=== PATIENT | female | born 1985 | race Caucasian/White ===

== ENCOUNTER 2016-08-13 02:32 | Emergency (ER) | payer OTHER ==
--- NOTE | 2016-08-13 06:14 | ED CLINICAL REPORT ---
Clinical Report - Physicians/Mid Levels [facility] [address] [place] [address] 08/13/2016 2:33 Patient: NATTY LARSON Arrived- By private vehicle. Historian- patient. HISTORY OF PRESENT ILLNESS Chief Complaint: PELVIC PAIN. This started today and still present and worsening. It was abrupt in onset and has been constant but is not gone now. The symptoms are described as severe. Modifying factors. Not worsened by anything. Not relieved by anything. The patient has had pelvic pain. No missed period(s), irregular periods or abnormal bleeding. Sexually active. (took misoprostol prior to onset of pain under the direction of her doctor. reports this is her first .). Currently : just under 10 weeks by dates. Recent sonogram showed demise. Similar symptoms previously: None. Recent medical care: Not recently seen/assessed. REVIEW OF SYSTEMS No fever, difficulty breathing or chest pain. All systems otherwise negative, except as recorded above. PAST HISTORY See nurses notes. Additional Surgeries: no known surgeries. Medications: Singulair Oral. Flovent HFA Inhalation. ProAir HFA Inhalation. Adderall Oral. Misoprostol Oral. Allergies: No Known Drug Allergy. SOCIAL HISTORY Never smoker. No alcohol use or drug use. No recent travel. Is a local resident. FAMILY HISTORY (no family history of delivery problems that she is aware of). ADDITIONAL NOTES The nursing notes have been reviewed. PHYSICAL EXAM Vital Signs: 08/13/2016 02:42 BP: 100/57. HR: 53. RR: 22. O2 saturation: 100%. Temp: 97.6 F. Pain level now: 10/10. Blood pressure normal. Oxygen saturation normal. Appearance: Alert. Oriented X3. Patient in moderate distress. CVS: Heart sounds normal. Respiratory: No respiratory distress. Breath sounds normal. Chest nontender. Abdomen: Soft and nontender. Bowel sounds normal. Back: Normal external inspection. : Speculum and bimanual exam performed. External inspection normal. Vaginal bleeding, consisting of dark blood, via the cervical os (scant). Cervical os closed. No cervical dilation. Enlarged uterus- 8 wk size. Uterine tenderness. No tenderness with movement of the cervix. No adnexal tenderness. No adnexal mass/fullness. No pelvic mass. (Exam performed with DIANE Dove at all times). Skin: Skin warm and dry. Normal skin color. No rash. Normal skin turgor. Extremities: Extremities nontender. No lower extremity edema. LABS, X-RAYS, AND EKG Pelvic Sonogram: PROCEDURE: US OB 1ST TRIMESTER W/TRANSVAG INDICATION: ABNORMAL BLEEDING, initial encounter TECHNIQUE: Pemberton scale, color, and spectral Doppler transabdominal and endovaginal sonographic images of the first trimester gravid uterus were obtained. COMPARISON: None. FINDINGS: TRANSABDOMINAL SCANS: Single intrauterine gestational sac. TRANSVAGINAL SCANS: pole measures 2.1 cm, 8 weeks 5 days. No evidence of cardiac activity. Small amount of fluid in the endocervical canal and free fluid the pelvis. Ovaries not well visualized. IMPRESSION: 1. Intrauterine (8 weeks 5 days) consistent with demise. The study was independently viewed by me, interpreted by the radiologist and discussed with the radiologist. Laboratory Tests: CBC w Diff: (RYAN: 08/13/2016 02:45) ( MsgRcvd 08/13/2016 02:58) Final results Test Result Flag Units (Reference) WHITE BLOOD COUNT 6.5 K/uL (4.5-11.5) RED BLOOD COUNT 4.28 M/uL (4.00-5.20) HEMOGLOBIN 12.5 gm/dL (12.0-16.0) HEMATOCRIT 37.3 % (36.0-46.0) MEAN CELL VOLUME 87 fL (80-100) MEAN CORPUSCULAR HGB 29 pg (26-34) MEAN CORPUSCULAR HGB CONC 33 g/dL (31-37) RED CELL DISTRIBUTION WIDTH 12.1 % (11.6-14.8) PLATELET COUNT 295 K/uL (150-400) NEUTROPHIL % 41.2 L % (50-75) LYMPH % 46.8 H % (25-40) MONO % 8.2 % (3-14) EOSINOPHIL % 3.1 % (0-4) BASOPHIL % 0.7 % (0-2) PT with INR: (RYAN: 08/13/2016 02:45) ( MsgRcvd 08/13/2016 03:07) Final results Test Result Flag Units (Reference) INR 1.0 (0.8-1.2) Low Intensity Therapy: INR 1.5-2.0 PT range 18.5-23.1Mod.Intensity Therapy: INR 2.0-3.0 PT range 23.1-31.5High Intensity Therapy: INR 2.5-3.5 PT range 27.4-35.5High Intensity Therapy 2: INR 3.0-4.0 PT range 31.5-39.3 APTT 29 SECONDS (24-34) CMP: (RYAN: 08/13/2016 02:45) ( MsgRcvd 08/13/2016 03:10) Final results Test Result Flag Units (Reference) GLUCOSE 134 H mg/dL (70-110) BUN 11 mg/dL (7-18) CREATININE 0.6 mg/dL (0.6-1.3) Estimated GFR >60 mL/min Estimated GFR- >60 mL/min Note: Persistent reduction over 3 months in eGFR<60 mL/min/1.73 m2 defines CKD. Patients with eGFR values>=60 mL/min/1.73 m2 may also have CKD if evidence ofpersistent proteinuria. Additional information may be foundat [email or web address]. SODIUM 135 L mmol/L (136-145) POTASSIUM 3.4 L mmol/L (3.5-5.1) CHLORIDE 102 mmol/L (98-107) CARBON DIOXIDE 23 mmol/L (21-32) CALCIUM 8.6 mg/dL (8.5-10.1) TOTAL PROTEIN 6.3 L g/dL (6.4-8.2) ALBUMIN 3.3 g/dL (3.3-5.0) BILIRUBIN, TOTAL 0.3 mg/dL (0.0-1.0) ALKALINE PHOSPHATASE 52 U/L (46-116) AST (SGOT) 21 U/L (15-37) ALT (SGPT) 31 U/L (12-78) Type & Screen: (RYAN: 08/13/2016 02:45) ( MsgRcvd 08/13/2016 03:28) Final results Test Result Flag Units (Reference) PATIENT BLOOD TYPE O Positive ANTIBODY SCREEN NEGATIVE . PROGRESS AND PROCEDURES Course of Care: he patient is a pleasant 31-year-old female presenting for evaluation of pelvic pain and was recently diagnosed withinevitable by her PYROMETER TEMPERATURE REGULATOR. Patient is recently taking misoptostol. Pain likely due to the miso. patient's blood pressure noted to be hypotensive here in the emergency department. Patient will be monitored closely. Fluids had been ordered. At this time differential diagnosis includes massive hemorrhage from Or vasovagal type reaction with inevitable . Pelvic exam performed with nursing clerk funeral detail staff at all times. Only a small amount of bleeding noted at the cervical os. No active massive bleeding. Ultrasound confirms demise. Cervical os is closed and no dilation. Blood pressure has improved here in the emergency department with IV fluids. We'll continue to monitor. Further workup does notshow any other acute abnormalities. Hemoglobin and hematocrit are within normal limits. Had a long discussion with patient in regards to her current and expectant course. Patient reports having prescription for pain medication in [place]. Because the patient is approximately one hour via car from [place], we'll provide patient with prescription to slat pickler locally. Patient's blood pressure improved with IV hydration. Had discussion with patient in regards to her workup, diagnosis, home care, follow-up, and return precautions. All questions answered. The patient expressed understanding of these instructions and was agreeable to them. Do not feel the patient needs a emergency dilation and curettage. Do not feel patient needs to be admitted to the hospital at this time. No signs of infection at this time. We'll manage conservatively and have patient follow up with her PYROMETER TEMPERATURE REGULATOR. Patient is nontoxic. Vital signs have stabilized. Critical care performed (40 minutes). Time is exclusive of separately billable procedures. Time includes: direct patient care, patient reassessment, coordination of patient care, interpretation of data (laboratory data), review of patient's medical records, medical consultation and documentation of patient care. Disposition: Discharged. Condition: good. CLINICAL IMPRESSION Acute pelvic pain. Threatened . (acute). acute hypotension, fluid responsive. INSTRUCTIONS Do not work for two days. Warnings: GENERAL WARNINGS: Return or contact your physician immediately if your condition worsens or changes unexpectedly, if not improving as expected, or if other problems arise. Specifically return if pain, vomiting, bleeding, breathing difficulty or fever. light headed, weakness, abnormal vaginal discharge. Your Current Medications: CONTINUE TAKING THE FOLLOWING MEDICATIONS: Adderall Oral. Flovent HFA Inhalation. Misoprostol Oral. ProAir HFA Inhalation. Singulair Oral. Prescription Medications: Percocet 5 mg/325 mg: take 1-2 tablets orally every 6 hours as needed for pain. Dispense twenty (20). No refill. Substitution is permissible. Follow-up: Return to the emergency department as needed. Follow up with your doctor in three days. Reason for referral: recheck today's concerns. Summary of care provided to patient via paper. Screening today revealed the patient's blood pressure to be in the normal range. The patient should follow up with a primary care provider for blood pressure management. Understanding of the discharge instructions verbalized by patient. (Electronically signed by Nolberto Butler Dr. 08/16/2016 18:09)
--- NOTE | 2016-08-13 06:14 | ED NURSING NOTES ---
Clinical Report - Nurses [facility] [address] [place] [place] [address] 08/13/2016 2:33 Patient: NATTY LARSON TRIAGE Triage time 0240. Acuity: LEVEL 3. Chief Complaint: ABDOMINAL PAIN and CRAMPS. RALF COMA SCORE: Ralf Coma Scale: 15- eyes open spontaneously (4); best verbal response- oriented x 4 (5); best motor response- obeys commands (6). --02:49 Petty Hameed R.N. 02:42 08/13/16. BP: 100/57. HR: 53. RR: 22 (labored). O2 saturation: 100% on room air. Temp: 97.6 F (oral). Pain level now: 04/27. --02:49 Petty Hameed R.N. Weight: 65.7 kg stated. Height/Length: 65 inches Per Patient. BMI: 24.1. --02:39 Petty Hameed R.N. Medications Misoprostol Oral. --02:47 Petty Hameed R.N. Adderall Oral. --02:47 Petty Hameed R.N. ProAir HFA Inhalation. --02:47 Petty Hameed R.N. Flovent HFA Inhalation. --02:47 Petty Hameed R.N. Singulair Oral. --02:47 Petty Hameed R.N. Allergies No Known Drug Allergy. --02:48 Petty Hameed R.N. Medication/allergy information source: the patient. --02:49 Petty Hameed R.N. History Arrived by private vehicle. Historian: patient. Accompanied by friend. Primary physician (Cha). ( pt c/o severe pelvic pain x 1 hour. pt about 9 1/2 weeks , ultrasound yesterday showed pt's fetus had no heart beat. pt given Misoprostol to take last night at 2230.). This started last night. 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 PAST MEDICAL HX: Last normal menstrual period- Jun 04, 2016. SOCIAL HX: Never smoker. Occasional alcohol use. No drug use. ABUSE ASSESSMENT: No report of abuse. FALL RISK ASSESSMENT: Fall risk assessment completed. No fall risk identified. NUTRITIONAL RISK ASSESSMENT: The nutritional risk assessment revealed no deficiencies. FUNCTIONAL ASSESSMENT: Functional assessment: no impairments noted. LEARNING NEEDS ASSESSMENT: The learning needs assessment revealed no barriers. SKIN INTEGRITY ASSESSMENT: Skin integrity risk assessment completed. No skin integrity risk identified. --02:49 Petty Hameed R.N. PAST MEDICAL HX: Currently . --02:49 Petty Hameed R.N. PROBLEMS: Asthma. --02:48 Petty Hameed R.N. ADDITIONAL SURGERIES: no known surgeries. Interventions ID band on patient. To treatment room. --02:49 Petty Hameed R.N. PHYSICAL ASSESSMENT 03:05 pt holding on to lower abdomen c/o severe pain, cramping. To room via wheelchair. GENERAL / NEURO / PSYCH: Alert. Oriented X 4. Appears in pain. RESPIRATORY: Respirations not labored. SKIN: Skin is dry. Skin is cool. --07:01 Petty Hameed R.N. NURSING PROGRESS NOTES Pulse oximeter and NIBP monitor placed on patient. Patient gowned. Two patient identifiers checked. Call light placed in reach. Side rails up x 1. Bed placed in lowest position. Brakes of bed on. Patient ready for evaluation. --02:49 Petty Hameed R.N. 02:55 08/13/2016 Site #1 started via IV in the right antecubital space with an 18g angiocath; one attempt. Blood drawn: rainbow set. Labeled in the presence of the patient and sent to the lab. Saline lock flushed. --02:55 Adonay Armendariz R.N. 02:55 08/13/2016 Started bag #1 1000 mL IV Fluids IV NS (Saline); bolus of 1000 mL wide open via site #1. Allergies verified and confirmed 5 rights. IV patency established. IV site checked: no pain, redness, or swelling. IV flushed thoroughly pre- and post-medication administration. --02:55 Adonay Armendariz R.N. 02:55 08/13/2016 Fentanyl IVP 50 mcg given over 2 minute(s) via site #1. Allergies verified, confirmed 5 rights and sedative warning given to the patient. IV patency established. IV site checked: no pain, redness, or swelling. IV flushed thoroughly pre- and post-medication administration. IVP given by RN. --02:58 Petty Hameed R.N. 03:12. PELVIC EXAM: Pelvic exam performed by ED physician. Assisted by one nurse. Preparation: pelvic tray; patient placed in lithotomy position. Procedure: speculum and bimanual exam. ( scant amount of dark blood per MD.). --03:17 Petty Hameed R.N. 03:25 08/13/2016 Fentanyl IVP 50 mcg given over 2 minute(s) via site #1. Allergies verified, confirmed 5 rights and sedative warning given to the patient. IV patency established. IV site checked: no pain, redness, or swelling. IV flushed thoroughly pre- and post-medication administration. IVP given by RN. --03:25 Petty Hameed R.N. 03:00 08/13/16. BP: 105/58. HR: 62. RR: 20 (unlabored). O2 saturation: 99% on room air. Pain level now: 01/25. --03:27 Petty Hameed R.N. 03:15 08/13/16. BP: 108/69. HR: 69. RR: 18 (unlabored). O2 saturation: 100% on room air. Pain level now: 01/25. --03:28 Petty Hameed R.N. 03:32 08/13/2016 IV Fluids IV NS Discontinued: bag #1 completed. Total amount infused: 1000 ml mL. IV patency established IV site checked: no pain, redness, or swelling IV flushed thoroughly. --03:32 Petty Hameed R.N. 03:33 08/13/2016 Started bag #2 1000 mL IV Fluids IV NS (Saline); at 999 mL/hr over 1 hour(s) via site #1 via IV pump. Allergies verified and confirmed 5 rights. IV patency established. IV site checked: no pain, redness, or swelling. IV flushed thoroughly pre- and post-medication administration. --03:33 Petty Hameed R.N. 03:58 08/13/2016 Dilaudid (HYDROmorphone HCl PF) IVP 1 mg given over 1 minute(s) via site #1. Allergies verified, confirmed 5 rights and sedative warning given to the patient and patient's blow mold operator. IV patency established. IV site checked: no pain, redness, or swelling. IV flushed thoroughly pre- and post-medication administration. IVP given by RN. --04:05 Petty Hameed R.N. chaperoned with [email or web address] for about 5 min. pt tolerated well. --04:07 Petty Hameed R.N. 04:40 08/13/2016 IV Fluids IV NS Discontinued: bag #2 completed. Total amount infused: 1000 ml mL. IV patency established. IV site checked: no pain, redness, or swelling. IV flushed thoroughly. --04:46 Petty Hameed R.N. 04:40 pt's 2nd liter of fluids completed. pt states she can't give a urine sample right now but will try. --04:47 Petty Hameed R.N. 04:00 08/13/16. BP: 108/69. HR: 69. RR: 18 (unlabored). O2 saturation: 99% on room air. --05:07 Petty Hameed R.N. Patient ID band checked for patient name and birthdate. Clean catch urine collected with return of yellow-colored clear urine; sample sent to lab for urinalysis. Specimen labeled in the presence of the patient (0500). --05:08 Petty Hameed R.N. 05:00 08/13/2016 Started bag #3 1000 mL IV Fluids IV NS (Saline); at 999 mL/hr over 1 hour(s) via site #1 via IV pump. Allergies verified and confirmed 5 rights. IV patency established. IV site checked: no pain, redness, or swelling. IV flushed thoroughly pre- and post-medication administration. --05:09 Petty Hameed R.N. 05:00 08/13/16. BP: 102/70. HR: 84. RR: 18 (unlabored). O2 saturation: 98% on room air. Temp: 98 F (oral). --05:58 Petty Hameed R.N. 05:40 pt feeling better, pain 10/26. --05:58 Petty Hameed R.N. 06:07 08/13/2016 IV Fluids IV NS Discontinued: bag #3 completed upon discharge. Total amount infused: 1000 mL. IV patency established. IV site checked: no pain, redness, or swelling. IV flushed thoroughly. --06:07 Adonay Armendariz R.N. 06:59 08/13/2016 Dilaudid (HYDROmorphone HCl PF) IVP 0.5 mg given over 1 minute(s) via site #1. Allergies verified, confirmed 5 rights and sedative warning given to the patient. IV patency established. IV site checked: no pain, redness, or swelling. IV flushed thoroughly pre- and post-medication administration. IVP given by RN. --06:59 Petty Hameed R.N. DISPOSITION / DISCHARGE Departure time: 720. Condition at departure: improved. Learning barriers present. Discharge instructions provided and reviewed with the patient. Reviewed medication(s) information. Prescription(s) given to the patient. Reviewed referral to family practice. Patient and blow mold operator verbalized understanding. Written instructions provided. The patient was discharged home and accompanied by blow mold operator. She left the Emergency Department ambulatory and via private vehicle. Automotive Design Drafter driving. --07:23 Marleen Blackwood R.N. 07:21 08/13/16. BP: 103/55. HR: 96. RR: 18. O2 saturation: 100%. Pain level now: 07/28. --07:23 Marleen Blackwood R.N. Locked/Released at 08/13/2016 13:43 by Marleen Blackwood R.N.
--- NOTE | 2016-08-13 06:14 | ED CLINICAL REPORT ---
Clinical Report - Physicians/Mid Levels [facility] [address] [place] [address] 08/13/2016 2:33 Patient: NATTY LARSON Arrived- By private vehicle. Historian- patient. HISTORY OF PRESENT ILLNESS Chief Complaint: PELVIC PAIN. This started today and still present and worsening. It was abrupt in onset and has been constant but is not gone now. The symptoms are described as severe. Modifying factors. Not worsened by anything. Not relieved by anything. The patient has had pelvic pain. No missed period(s), irregular periods or abnormal bleeding. Sexually active. (took misoprostol prior to onset of pain under the direction of her doctor. reports this is her first .). Currently : just under 10 weeks by dates. Recent sonogram showed demise. Similar symptoms previously: None. Recent medical care: Not recently seen/assessed. REVIEW OF SYSTEMS No fever, difficulty breathing or chest pain. All systems otherwise negative, except as recorded above. PAST HISTORY See nurses notes. Additional Surgeries: no known surgeries. Medications: Singulair Oral. Flovent HFA Inhalation. ProAir HFA Inhalation. Adderall Oral. Misoprostol Oral. Allergies: No Known Drug Allergy. SOCIAL HISTORY Never smoker. No alcohol use or drug use. No recent travel. Is a local resident. FAMILY HISTORY (no family history of delivery problems that she is aware of). ADDITIONAL NOTES The nursing notes have been reviewed. PHYSICAL EXAM Vital Signs: 08/13/2016 02:42 BP: 100/57. HR: 53. RR: 22. O2 saturation: 100%. Temp: 97.6 F. Pain level now: 10/10. Blood pressure normal. Oxygen saturation normal. Appearance: Alert. Oriented X3. Patient in moderate distress. CVS: Heart sounds normal. Respiratory: No respiratory distress. Breath sounds normal. Chest nontender. Abdomen: Soft and nontender. Bowel sounds normal. Back: Normal external inspection. : Speculum and bimanual exam performed. External inspection normal. Vaginal bleeding, consisting of dark blood, via the cervical os (scant). Cervical os closed. No cervical dilation. Enlarged uterus- 8 wk size. Uterine tenderness. No tenderness with movement of the cervix. No adnexal tenderness. No adnexal mass/fullness. No pelvic mass. (Exam performed with DIANE Dove at all times). Skin: Skin warm and dry. Normal skin color. No rash. Normal skin turgor. Extremities: Extremities nontender. No lower extremity edema. LABS, X-RAYS, AND EKG Pelvic Sonogram: PROCEDURE: US OB 1ST TRIMESTER W/TRANSVAG INDICATION: ABNORMAL BLEEDING, initial encounter TECHNIQUE: Pemberton scale, color, and spectral Doppler transabdominal and endovaginal sonographic images of the first trimester gravid uterus were obtained. COMPARISON: None. FINDINGS: TRANSABDOMINAL SCANS: Single intrauterine gestational sac. TRANSVAGINAL SCANS: pole measures 2.1 cm, 8 weeks 5 days. No evidence of cardiac activity. Small amount of fluid in the endocervical canal and free fluid the pelvis. Ovaries not well visualized. IMPRESSION: 1. Intrauterine (8 weeks 5 days) consistent with demise. The study was independently viewed by me, interpreted by the radiologist and discussed with the radiologist. Laboratory Tests: CBC w Diff: (RYAN: 08/13/2016 02:45) ( MsgRcvd 08/13/2016 02:58) Final results Test Result Flag Units (Reference) WHITE BLOOD COUNT 6.5 K/uL (4.5-11.5) RED BLOOD COUNT 4.28 M/uL (4.00-5.20) HEMOGLOBIN 12.5 gm/dL (12.0-16.0) HEMATOCRIT 37.3 % (36.0-46.0) MEAN CELL VOLUME 87 fL (80-100) MEAN CORPUSCULAR HGB 29 pg (26-34) MEAN CORPUSCULAR HGB CONC 33 g/dL (31-37) RED CELL DISTRIBUTION WIDTH 12.1 % (11.6-14.8) PLATELET COUNT 295 K/uL (150-400) NEUTROPHIL % 41.2 L % (50-75) LYMPH % 46.8 H % (25-40) MONO % 8.2 % (3-14) EOSINOPHIL % 3.1 % (0-4) BASOPHIL % 0.7 % (0-2) PT with INR: (RYAN: 08/13/2016 02:45) ( MsgRcvd 08/13/2016 03:07) Final results Test Result Flag Units (Reference) INR 1.0 (0.8-1.2) Low Intensity Therapy: INR 1.5-2.0 PT range 18.5-23.1Mod.Intensity Therapy: INR 2.0-3.0 PT range 23.1-31.5High Intensity Therapy: INR 2.5-3.5 PT range 27.4-35.5High Intensity Therapy 2: INR 3.0-4.0 PT range 31.5-39.3 APTT 29 SECONDS (24-34) CMP: (RYAN: 08/13/2016 02:45) ( MsgRcvd 08/13/2016 03:10) Final results Test Result Flag Units (Reference) GLUCOSE 134 H mg/dL (70-110) BUN 11 mg/dL (7-18) CREATININE 0.6 mg/dL (0.6-1.3) Estimated GFR >60 mL/min Estimated GFR- >60 mL/min Note: Persistent reduction over 3 months in eGFR<60 mL/min/1.73 m2 defines CKD. Patients with eGFR values>=60 mL/min/1.73 m2 may also have CKD if evidence ofpersistent proteinuria. Additional information may be foundat [email or web address].org. SODIUM 135 L mmol/L (136-145) POTASSIUM 3.4 L mmol/L (3.5-5.1) CHLORIDE 102 mmol/L (98-107) CARBON DIOXIDE 23 mmol/L (21-32) CALCIUM 8.6 mg/dL (8.5-10.1) TOTAL PROTEIN 6.3 L g/dL (6.4-8.2) ALBUMIN 3.3 g/dL (3.3-5.0) BILIRUBIN, TOTAL 0.3 mg/dL (0.0-1.0) ALKALINE PHOSPHATASE 52 U/L (46-116) AST (SGOT) 21 U/L (15-37) ALT (SGPT) 31 U/L (12-78) Type & Screen: (YRAN: 08/13/2016 02:45) ( MsgRcvd 08/13/2016 03:28) Final results Test Result Flag Units (Reference) PATIENT BLOOD TYPE O Positive ANTIBODY SCREEN NEGATIVE . PROGRESS AND PROCEDURES Course of Care: he patient is a pleasant 31-year-old female presenting for evaluation of pelvic pain and was recently diagnosed withinevitable by her DIRECTOR OF ENTERTAINMENT. Patient is recently taking misoptostol. Pain likely due to the miso. patient's blood pressure noted to be hypotensive here in the emergency department. Patient will be monitored closely. Fluids had been ordered. At this time differential diagnosis includes massive hemorrhage from Or vasovagal type reaction with inevitable . Pelvic exam performed with nursing coil winder hand staff at all times. Only a small amount of bleeding noted at the cervical os. No active massive bleeding. Ultrasound confirms demise. Cervical os is closed and no dilation. Blood pressure has improved here in the emergency department with IV fluids. We'll continue to monitor. Further workup does notshow any other acute abnormalities. Hemoglobin and hematocrit are within normal limits. Had a long discussion with patient in regards to her current and expectant course. Patient reports having prescription for pain medication in [place]. Because the patient is approximately one hour via car from [place], we'll provide patient with prescription to mushroom picker locally. Patient's blood pressure improved with IV hydration. Had discussion with patient in regards to her workup, diagnosis, home care, follow-up, and return precautions. All questions answered. The patient expressed understanding of these instructions and was agreeable to them. Do not feel the patient needs a emergency dilation and curettage. Do not feel patient needs to be admitted to the hospital at this time. No signs of infection at this time. We'll manage conservatively and have patient follow up with her DIRECTOR OF ENTERTAINMENT. Patient is nontoxic. Vital signs have stabilized. Critical care performed (40 minutes). Time is exclusive of separately billable procedures. Time includes: direct patient care, patient reassessment, coordination of patient care, interpretation of data (laboratory data), review of patient's medical records, medical consultation and documentation of patient care. Disposition: Discharged. Condition: good. CLINICAL IMPRESSION Acute pelvic pain. Threatened . (acute). acute hypotension, fluid responsive. INSTRUCTIONS Do not work for two days. Warnings: GENERAL WARNINGS: Return or contact your physician immediately if your condition worsens or changes unexpectedly, if not improving as expected, or if other problems arise. Specifically return if pain, vomiting, bleeding, breathing difficulty or fever. light headed, weakness, abnormal vaginal discharge. Your Current Medications: CONTINUE TAKING THE FOLLOWING MEDICATIONS: Adderall Oral. Flovent HFA Inhalation. Misoprostol Oral. ProAir HFA Inhalation. Singulair Oral. Prescription Medications: Percocet 5 mg/325 mg: take 1-2 tablets orally every 6 hours as needed for pain. Dispense twenty (20). No refill. Substitution is permissible. Follow-up: Return to the emergency department as needed. Follow up with your doctor in three days. Reason for referral: recheck today's concerns. Summary of care provided to patient via paper. Screening today revealed the patient's blood pressure to be in the normal range. The patient should follow up with a primary care provider for blood pressure management. Understanding of the discharge instructions verbalized by patient. (Electronically signed by Nolberto Butler Dr. 08/16/2016 18:09)
--- NOTE | 2016-08-13 06:14 | ED NURSING NOTES ---
Clinical Report - Nurses [facility] [address] [place] [place] [address] 08/13/2016 2:33 Patient: NATTY LARSON TRIAGE Triage time 0240. Acuity: LEVEL 3. Chief Complaint: ABDOMINAL PAIN and CRAMPS. RALF COMA SCORE: Ralf Coma Scale: 15- eyes open spontaneously (4); best verbal response- oriented x 4 (5); best motor response- obeys commands (6). --02:49 Petty Hameed R.N. 02:42 08/13/16. BP: 100/57. HR: 53. RR: 22 (labored). O2 saturation: 100% on room air. Temp: 97.6 F (oral). Pain level now: 04/27. --02:49 Petty Hameed R.N. Weight: 65.7 kg stated. Height/Length: 65 inches Per Patient. BMI: 24.1. --02:39 Petty Hameed R.N. Medications Misoprostol Oral. --02:47 Petty Hameed R.N. Adderall Oral. --02:47 Petty Hameed R.N. ProAir HFA Inhalation. --02:47 Petty Hameed R.N. Flovent HFA Inhalation. --02:47 Petty Hameed R.N. Singulair Oral. --02:47 Petty Hameed R.N. Allergies No Known Drug Allergy. --02:48 Petty Hameed R.N. Medication/allergy information source: the patient. --02:49 Petty Hameed R.N. History Arrived by private vehicle. Historian: patient. Accompanied by friend. Primary physician (Cha). ( pt c/o severe pelvic pain x 1 hour. pt about 9 1/2 weeks , ultrasound yesterday showed pt's fetus had no heart beat. pt given Misoprostol to take last night at 2230.). This started last night. 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 PAST MEDICAL HX: Last normal menstrual period- Jun 04, 2016. SOCIAL HX: Never smoker. Occasional alcohol use. No drug use. ABUSE ASSESSMENT: No report of abuse. FALL RISK ASSESSMENT: Fall risk assessment completed. No fall risk identified. NUTRITIONAL RISK ASSESSMENT: The nutritional risk assessment revealed no deficiencies. FUNCTIONAL ASSESSMENT: Functional assessment: no impairments noted. LEARNING NEEDS ASSESSMENT: The learning needs assessment revealed no barriers. SKIN INTEGRITY ASSESSMENT: Skin integrity risk assessment completed. No skin integrity risk identified. --02:49 Petty Hameed R.N. PAST MEDICAL HX: Currently . --02:49 Petty Hameed R.N. PROBLEMS: Asthma. --02:48 Petty Hameed R.N. ADDITIONAL SURGERIES: no known surgeries. Interventions ID band on patient. To treatment room. --02:49 Petty Hameed R.N. PHYSICAL ASSESSMENT 03:05 pt holding on to lower abdomen c/o severe pain, cramping. To room via wheelchair. GENERAL / NEURO / PSYCH: Alert. Oriented X 4. Appears in pain. RESPIRATORY: Respirations not labored. SKIN: Skin is dry. Skin is cool. --07:01 Petty Hameed R.N. NURSING PROGRESS NOTES Pulse oximeter and NIBP monitor placed on patient. Patient gowned. Two patient identifiers checked. Call light placed in reach. Side rails up x 1. Bed placed in lowest position. Brakes of bed on. Patient ready for evaluation. --02:49 Petty Hameed R.N. 02:55 08/13/2016 Site #1 started via IV in the right antecubital space with an 18g angiocath; one attempt. Blood drawn: rainbow set. Labeled in the presence of the patient and sent to the lab. Saline lock flushed. --02:55 Adonay Armendariz R.N. 02:55 08/13/2016 Started bag #1 1000 mL IV Fluids IV NS (Saline); bolus of 1000 mL wide open via site #1. Allergies verified and confirmed 5 rights. IV patency established. IV site checked: no pain, redness, or swelling. IV flushed thoroughly pre- and post-medication administration. --02:55 Adonay Armendariz R.N. 02:55 08/13/2016 Fentanyl IVP 50 mcg given over 2 minute(s) via site #1. Allergies verified, confirmed 5 rights and sedative warning given to the patient. IV patency established. IV site checked: no pain, redness, or swelling. IV flushed thoroughly pre- and post-medication administration. IVP given by RN. --02:58 Petty Hameed R.N. 03:12. PELVIC EXAM: Pelvic exam performed by ED physician. Assisted by one nurse. Preparation: pelvic tray; patient placed in lithotomy position. Procedure: speculum and bimanual exam. ( scant amount of dark blood per MD.). --03:17 Petty Hameed R.N. 03:25 08/13/2016 Fentanyl IVP 50 mcg given over 2 minute(s) via site #1. Allergies verified, confirmed 5 rights and sedative warning given to the patient. IV patency established. IV site checked: no pain, redness, or swelling. IV flushed thoroughly pre- and post-medication administration. IVP given by RN. --03:25 Petty Hameed R.N. 03:00 08/13/16. BP: 105/58. HR: 62. RR: 20 (unlabored). O2 saturation: 99% on room air. Pain level now: 01/25. --03:27 Petty Hameed R.N. 03:15 08/13/16. BP: 108/69. HR: 69. RR: 18 (unlabored). O2 saturation: 100% on room air. Pain level now: 01/25. --03:28 Petty Hameed R.N. 03:32 08/13/2016 IV Fluids IV NS Discontinued: bag #1 completed. Total amount infused: 1000 ml mL. IV patency established IV site checked: no pain, redness, or swelling IV flushed thoroughly. --03:32 Petty Hameed R.N. 03:33 08/13/2016 Started bag #2 1000 mL IV Fluids IV NS (Saline); at 999 mL/hr over 1 hour(s) via site #1 via IV pump. Allergies verified and confirmed 5 rights. IV patency established. IV site checked: no pain, redness, or swelling. IV flushed thoroughly pre- and post-medication administration. --03:33 Petty Hameed R.N. 03:58 08/13/2016 Dilaudid (HYDROmorphone HCl PF) IVP 1 mg given over 1 minute(s) via site #1. Allergies verified, confirmed 5 rights and sedative warning given to the patient and patient's vest front presser. IV patency established. IV site checked: no pain, redness, or swelling. IV flushed thoroughly pre- and post-medication administration. IVP given by RN. --04:05 Petty Hameed R.N. chaperoned with [email or web address] for about 5 min. pt tolerated well. --04:07 Petty Hameed R.N. 04:40 08/13/2016 IV Fluids IV NS Discontinued: bag #2 completed. Total amount infused: 1000 ml mL. IV patency established. IV site checked: no pain, redness, or swelling. IV flushed thoroughly. --04:46 Petty Hameed R.N. 04:40 pt's 2nd liter of fluids completed. pt states she can't give a urine sample right now but will try. --04:47 Petty Hameed R.N. 04:00 08/13/16. BP: 108/69. HR: 69. RR: 18 (unlabored). O2 saturation: 99% on room air. --05:07 Petty Hameed R.N. Patient ID band checked for patient name and birthdate. Clean catch urine collected with return of yellow-colored clear urine; sample sent to lab for urinalysis. Specimen labeled in the presence of the patient (0500). --05:08 Petty Hameed R.N. 05:00 08/13/2016 Started bag #3 1000 mL IV Fluids IV NS (Saline); at 999 mL/hr over 1 hour(s) via site #1 via IV pump. Allergies verified and confirmed 5 rights. IV patency established. IV site checked: no pain, redness, or swelling. IV flushed thoroughly pre- and post-medication administration. --05:09 Petty Hameed R.N. 05:00 08/13/16. BP: 102/70. HR: 84. RR: 18 (unlabored). O2 saturation: 98% on room air. Temp: 98 F (oral). --05:58 Petty Hameed R.N. 05:40 pt feeling better, pain 10/26. --05:58 Petty Hameed R.N. 06:07 08/13/2016 IV Fluids IV NS Discontinued: bag #3 completed upon discharge. Total amount infused: 1000 mL. IV patency established. IV site checked: no pain, redness, or swelling. IV flushed thoroughly. --06:07 Adonay Armendariz R.N. 06:59 08/13/2016 Dilaudid (HYDROmorphone HCl PF) IVP 0.5 mg given over 1 minute(s) via site #1. Allergies verified, confirmed 5 rights and sedative warning given to the patient. IV patency established. IV site checked: no pain, redness, or swelling. IV flushed thoroughly pre- and post-medication administration. IVP given by RN. --06:59 Petty Hameed R.N. DISPOSITION / DISCHARGE Departure time: 720. Condition at departure: improved. Learning barriers present. Discharge instructions provided and reviewed with the patient. Reviewed medication(s) information. Prescription(s) given to the patient. Reviewed referral to family practice. Patient and vest front presser verbalized understanding. Written instructions provided. The patient was discharged home and accompanied by vest front presser. She left the Emergency Department ambulatory and via private vehicle. Crime Scene Evidence Technician driving. --07:23 Marleen Blackwood R.N. 07:21 08/13/16. BP: 103/55. HR: 96. RR: 18. O2 saturation: 100%. Pain level now: 07/28. --07:23 Marleen Blackwood R.N. Locked/Released at 08/13/2016 13:43 by Marleen Blackwood R.N.
--- NOTE | 2016-08-13 06:15 | ED ORDER SUMMARY ---
..... Patient: NATTY LARSON OrderSheet [facility] VisitID: [id number] [place] [address] 31y, F Registration Date/Time: 08/13/2016 ORDER SHEET Weight: 65.7 kg (stated) Allergies: No Known Drug Allergy GENERAL ORDERS: US OB 1st Trimester w Transvag (several months ago) Urgent (02:49 08/13/2016 Jona Patterson) (Ack 2:51 CHagerty ER Vocational Trainer) (4:28 Massimo) CBC w Diff Urgent (02:50 08/13/2016 Jona Patterson) (Ack 2:51 Ely ER Vocational Trainer) (7:02 LSullivan R.N.) CMP Urgent (02:50 08/13/2016 Jona Patterson) (Ack 2:51 CHagerty ER Vocational Trainer) (7:03 LSullivan R.N.) UA-Culture if indicated Urgent (02:50 08/13/2016 Jona Patterson) (Ack 2:51 CHagerty ER Vocational Trainer) (7:03 LSullivan R.N.) PT with INR Urgent (02:50 08/13/2016 Jona Patterson) (Ack 2:51 CHagerty ER Vocational Trainer) (7:03 LSullivan R.N.) PTT Urgent (02:50 08/13/2016 Jona Patterson) (Ack 2:51 CHagerty ER Vocational Trainer) (7:03 LSullivan R.N.) Type & Screen Urgent (02:50 08/13/2016 Jona Patterson) (Ack 2:51 CHagerty ER Vocational Trainer) (7:03 LSullivan R.N.) Pelvic Exam Setup (02:50 08/13/2016 Jona Patterson) (3:07 Abdifatah) Serum Quantitative Urgent (04:32 08/13/2016 Jona Patterson) (Ack 4:33 CHagerty ER Vocational Trainer) (7:03 LSullivan R.N.) MEDICATION ORDERS: IV FLUIDS: Fentanyl IV 50 mcg (may repeat once in 15 mintues for pain > 5/10) (02:49 08/13/2016 Jona Patterson) (Ack 2:52 HKone R.N.) (2:58 HKone R.N.) IV NS with Normal Saline 1 Liter: initial bolus 1000 mL (1000 mL/hr), then 1000 mL/hr for X1 (NOW) (02:54 08/13/2016 DBeyer R.N. verbal order read back to Jona Patterson) (2:55 DBeyer R.N.) Dilaudid IV 1 mg (once now. may repeat in 15 minutes for pain > 5/10 for total of 2 mg) (03:17 08/13/2016 Jona Patterson) (Ack 3:37 HKone R.N.) (4:05 HKone R.N.) IV NS : initial bolus 1000 mL (1000 mL/hr), then none - for X1 (NOW) (03:23 08/13/2016 Jona Patterson) (3:33 HKone R.N.) IV NS : initial bolus 1000 mL (1000 mL/hr), then none - for X1 (NOW) (04:49 08/13/2016 Jona Patterson) (Ack 4:51 HKone R.N.) (5:09 HKone R.N.) ORDER SHEET NOTES: [Electronically signed by Marleen Blackwood R.N. (13:43 08/13/2016)] [Electronically signed by Nolberto Butler Dr. (18:09 08/16/2016)] [Electronically locked/signed by Marleen Blackwood R.N. (13:43 08/13/2016)]
--- NOTE | 2016-08-13 06:15 | ED ORDER SUMMARY ---
..... Patient: NATTY LARSON OrderSheet [facility] VisitID: [id number] [place] [address] 31y, F Registration Date/Time: 08/13/2016 ORDER SHEET Weight: 65.7 kg (stated) Allergies: No Known Drug Allergy GENERAL ORDERS: US OB 1st Trimester w Transvag (several months ago) Urgent (02:49 08/13/2016 Jona Patterson) (Ack 2:51 CHagerty ER Coroner/Medical Examiner) (4:28 Massimo) CBC w Diff Urgent (02:50 08/13/2016 Jona Patterson) (Ack 2:51 Ely ER Coroner/Medical Examiner) (7:02 LSullivan R.N.) CMP Urgent (02:50 08/13/2016 Jona Patterson) (Ack 2:51 CHagerty ER Coroner/Medical Examiner) (7:03 LSullivan R.N.) UA-Culture if indicated Urgent (02:50 08/13/2016 Jona Patterson) (Ack 2:51 CHagerty ER Coroner/Medical Examiner) (7:03 LSullivan R.N.) PT with INR Urgent (02:50 08/13/2016 Jona Patterson) (Ack 2:51 CHagerty ER Coroner/Medical Examiner) (7:03 LSullivan R.N.) PTT Urgent (02:50 08/13/2016 Jona Patterson) (Ack 2:51 CHagerty ER Coroner/Medical Examiner) (7:03 LSullivan R.N.) Type & Screen Urgent (02:50 08/13/2016 Jona Patterson) (Ack 2:51 CHagerty ER Coroner/Medical Examiner) (7:03 LSullivan R.N.) Pelvic Exam Setup (02:50 08/13/2016 Jona Patterson) (3:07 Abdifatah) Serum Quantitative Urgent (04:32 08/13/2016 Jona Patterson) (Ack 4:33 CHagerty ER Coroner/Medical Examiner) (7:03 LSullivan R.N.) MEDICATION ORDERS: IV FLUIDS: Fentanyl IV 50 mcg (may repeat once in 15 mintues for pain > 5/10) (02:49 08/13/2016 Jona Patterson) (Ack 2:52 HKone R.N.) (2:58 HKone R.N.) IV NS with Normal Saline 1 Liter: initial bolus 1000 mL (1000 mL/hr), then 1000 mL/hr for X1 (NOW) (02:54 08/13/2016 DBeyer R.N. verbal order read back to Jona Patterson) (2:55 DBeyer R.N.) Dilaudid IV 1 mg (once now. may repeat in 15 minutes for pain > 5/10 for total of 2 mg) (03:17 08/13/2016 Jona Patterson) (Ack 3:37 HKone R.N.) (4:05 HKone R.N.) IV NS : initial bolus 1000 mL (1000 mL/hr), then none - for X1 (NOW) (03:23 08/13/2016 Jona Patterson) (3:33 HKone R.N.) IV NS : initial bolus 1000 mL (1000 mL/hr), then none - for X1 (NOW) (04:49 08/13/2016 Jona Patterson) (Ack 4:51 HKone R.N.) (5:09 HKone R.N.) ORDER SHEET NOTES: [Electronically signed by Marleen Blackwood R.N. (13:43 08/13/2016)] [Electronically signed by Nolberto Butler Dr. (18:09 08/16/2016)] [Electronically locked/signed by Marleen Blackwood R.N. (13:43 08/13/2016)]
--- NOTE | 2016-08-13 07:09 | DIAGNOSTIC IMAGING REPORT ---
PROCEDURE: US OB 1ST TRIMESTER W/TRANSVAG INDICATION: ABNORMAL BLEEDING, initial encounter TECHNIQUE: Pemberton scale, color, and spectral Doppler transabdominal and endovaginal sonographic images of the first trimester gravid uterus were obtained. COMPARISON: None. FINDINGS: TRANSABDOMINAL SCANS: Single intrauterine gestational sac. TRANSVAGINAL SCANS: pole measures 2.1 cm, 8 weeks 5 days. No evidence of cardiac activity. Small amount of fluid in the endocervical canal and free fluid the pelvis. Ovaries not well visualized. IMPRESSION: 1. Intrauterine (8 weeks 5 days) consistent with demise.
--- NOTE | 2016-08-16 18:10 | ED MAR SUMMARY ---
..... Medication Administration Record [facility] [address] [place] [address] Patient: NATTY LARSON Visit ID: [id number] 31y, F Weight: 65.7 kg Height/Length: 65 in BMI: 24.1 ALLERGIES: No Known Drug Allergy Given 02:55 08/13/2016 Petty Hameed R.N. Medication Administered: FENTANYL [IVP], Dose: 50 mcg IVP over 2 minute(s), Site: #1 right AC. Medication Ordered: Fentanyl IV 50 mcg (may repeat once in 15 mintues for pain > 5/10). Start 02:55 08/13/2016 Adonay Armendariz R.N., Stop 03:32 08/13/2016 Petty Hameed R.N. Medication Administered: IV NS (SALINE), Dose: IV Fluids, Bolus: 1000 mL wide open, Dispensed: 1000 mL bag, Site: #1 right AC. Medication Ordered: IV NS with Normal Saline 1 Liter: initial bolus 1000 mL (1000 mL/hr), then 1000 mL/hr for X1 (NOW). Given 03:25 08/13/2016 Petty Hameed R.N. Medication Administered: FENTANYL [IVP], Dose: 50 mcg IVP over 2 minute(s), Site: #1 right AC. Medication Ordered: Fentanyl IV 50 mcg (may repeat once in 15 mintues for pain > 5/10). Start 03:33 08/13/2016 Petty Hameed R.N., Stop 04:40 08/13/2016 Petty Hameed R.N. Medication Administered: IV NS (SALINE), Dose: IV Fluids over 1 hour(s), Rate: 999 mL/hr, Dispensed: 1000 mL bag, Site: #1 right AC. Medication Ordered: IV NS : initial bolus 1000 mL (1000 mL/hr), then none - for X1 (NOW). Given 03:58 08/13/2016 Petty Hameed R.N. Medication Administered: DILAUDID [IVP] (HYDROMORPHONE HCL PF), Dose: 1 mg IVP over 1 minute(s), Site: #1 right AC. Medication Ordered: Dilaudid IV 1 mg (once now. may repeat in 15 minutes for pain > 5/10 for total of 2 mg). Start 05:00 08/13/2016 Petty Hameed, R.N., Stop 06:07 08/13/2016 Adonay Armendariz RRowdyN. Medication Administered: IV NS (SALINE), Dose: IV Fluids over 1 hour(s), Rate: 999 mL/hr, Dispensed: 1000 mL bag, Site: #1 right AC. Medication Ordered: IV NS : initial bolus 1000 mL (1000 mL/hr), then none - for X1 (NOW). Given 06:59 08/13/2016 Petty Hameed, RRowdyN. Medication Administered: DILAUDID [IVP] (HYDROMORPHONE HCL PF), Dose: 0.5 mg IVP over 1 minute(s), Site: #1 right AC. Medication Ordered: Dilaudid IV 1 mg (once now. may repeat in 15 minutes for pain > 5/10 for total of 2 mg).
--- NOTE | 2016-08-16 18:10 | ED MAR SUMMARY ---
..... Medication Administration Record [facility] [address] [place] [address] Patient: NATTY LARSON Visit ID: [id number] 31y, F Weight: 65.7 kg Height/Length: 65 in BMI: 24.1 ALLERGIES: No Known Drug Allergy Given 02:55 08/13/2016 Petty Hameed R.N. Medication Administered: FENTANYL [IVP], Dose: 50 mcg IVP over 2 minute(s), Site: #1 right AC. Medication Ordered: Fentanyl IV 50 mcg (may repeat once in 15 mintues for pain > 5/10). Start 02:55 08/13/2016 Adonay Armendariz R.N., Stop 03:32 08/13/2016 Petty Hameed R.N. Medication Administered: IV NS (SALINE), Dose: IV Fluids, Bolus: 1000 mL wide open, Dispensed: 1000 mL bag, Site: #1 right AC. Medication Ordered: IV NS with Normal Saline 1 Liter: initial bolus 1000 mL (1000 mL/hr), then 1000 mL/hr for X1 (NOW). Given 03:25 08/13/2016 Petty Hameed R.N. Medication Administered: FENTANYL [IVP], Dose: 50 mcg IVP over 2 minute(s), Site: #1 right AC. Medication Ordered: Fentanyl IV 50 mcg (may repeat once in 15 mintues for pain > 5/10). Start 03:33 08/13/2016 Petty Hameed R.N., Stop 04:40 08/13/2016 Petty Hameed R.N. Medication Administered: IV NS (SALINE), Dose: IV Fluids over 1 hour(s), Rate: 999 mL/hr, Dispensed: 1000 mL bag, Site: #1 right AC. Medication Ordered: IV NS : initial bolus 1000 mL (1000 mL/hr), then none - for X1 (NOW). Given 03:58 08/13/2016 Petty Hameed R.N. Medication Administered: DILAUDID [IVP] (HYDROMORPHONE HCL PF), Dose: 1 mg IVP over 1 minute(s), Site: #1 right AC. Medication Ordered: Dilaudid IV 1 mg (once now. may repeat in 15 minutes for pain > 5/10 for total of 2 mg). Start 05:00 08/13/2016 Petty Hameed, R.N., Stop 06:07 08/13/2016 Adonay Armendariz RRowdyN. Medication Administered: IV NS (SALINE), Dose: IV Fluids over 1 hour(s), Rate: 999 mL/hr, Dispensed: 1000 mL bag, Site: #1 right AC. Medication Ordered: IV NS : initial bolus 1000 mL (1000 mL/hr), then none - for X1 (NOW). Given 06:59 08/13/2016 Petty Hameed, RRowdyN. Medication Administered: DILAUDID [IVP] (HYDROMORPHONE HCL PF), Dose: 0.5 mg IVP over 1 minute(s), Site: #1 right AC. Medication Ordered: Dilaudid IV 1 mg (once now. may repeat in 15 minutes for pain > 5/10 for total of 2 mg).
--- NOTE | 2016-08-16 18:10 | ED DISCHARGE INSTRUCTIONS ---
Patient: NATTY LARSON General Instructions [facility] VisitID: [id number] [place] [address] 31y, F Registration Date/Time: 08/13/2016 Acute pelvic pain. acute hypotension, fluid responsive. INSTRUCTIONS Do not work for two days. Warnings: GENERAL WARNINGS: Return or contact your physician immediately if your condition worsens or changes unexpectedly, if not improving as expected, or if other problems arise. Specifically return if pain, vomiting, bleeding, breathing difficulty or fever. light headed, weakness, abnormal vaginal discharge. Your Current Medications: CONTINUE TAKING THE FOLLOWING MEDICATIONS: Adderall Oral. Flovent HFA Inhalation. Misoprostol Oral. ProAir HFA Inhalation. Singulair Oral. Prescription Medications: Percocet 5 mg/325 mg: take 1-2 tablets orally every 6 hours as needed for pain. Dispense twenty (20). No refill. Substitution is permissible. Follow-up: Return to the emergency department as needed. Follow up with your doctor in three days. Reason for referral: recheck today's concerns. Summary of care provided to patient via paper. Screening today revealed the patient's blood pressure to be in the normal range. The patient should follow up with a primary care provider for blood pressure management. Understanding of the discharge instructions verbalized by patient. ADDITIONAL INFORMATION Pelvic Pain, Uncertain Cause Based on your visit today, the exact cause of your pelvic pain is not certain. But your condition does not appear to be serious at this time. However, the signs of a serious problem may take more time to appear. Therefore, it is important for you to watch for any new symptoms or worsening of your condition. Home Care: Rest until you are feeling better. Avoid sexual intercourse until your pain goes away. You may use acetaminophen (Tylenol) or ibuprofen (Motrin, Advil) to control pain, unless another medicine was prescribed. [NOTE: If you have chronic liver or kidney disease or ever had a stomach ulcer or GI bleeding, talk with your doctor before using these medicines.] Follow Up with your doctor as advised. If a culture test was taken, call in two days for the results. If the culture is positive, you will be given more advice at that time. Otherwise, follow-up with your doctor or this facility as instructed. Get Prompt Medical Attention if any of the following occur: Fever of 100.4F (38C) or higher, or as directed by your healthcare provider Vaginal discharge Worsening pain Weakness, dizziness or fainting Unexpected vaginal bleeding or passage of salazar or white tissue from the vagina Pain that moves to the right lower abdomen Possible Miscarriage (Threatened ) During early (first three months), it is not uncommon to have a small amount of bleeding. This can be entirely normal. But heavy bleeding or severe cramping can be an early sign of miscarriage. A miscarriage means unexpected loss of your . In about half of patients with bleeding or cramping during early , these symptoms will stop and the will continue normally. However, half of the time a miscarriage will occur. A miscarriage may occur due to various causes. These include a problem with the babys chromosomes (genes that carry the information needed for life) or with fertilization or implantation that didnt happen correctly. In most cases no cause can be found. Be reassured that this is not the result of anything that you did wrong, and it will not interfere with your ability to become in the future. Home Care: To improve the chance of keeping this , you should do the following: Rest in bed until the pain and bleeding stop. Do not have sexual intercourse for the next 3 weeks. Use sanitary napkins instead of tampons. Do not douche. Follow-Up: Make an appointment with your doctor within the next week, or as directed by our staff. Note: If you had an ultrasound, it will be reviewed by a specialist. You will be notified of any new findings that may affect your care. Get Prompt Medical Attention if any of the following occur: Vaginal bleeding or pain for more than three days Heavy bleeding (soaking one new pad an hour over three hours) Fever of 100.4F (38C) or higher, or as directed by your healthcare provider Increasing lower abdominal pain Weakness, dizziness, or fainting Passage of anything that resembles tissue: pink or grayish membrane or solid material (save the tissue in a clean container and bring to the doctor) Oxycodone Hydrochloride, Acetaminophen Oral tablet What is this medicine? ACETAMINOPHEN; OXYCODONE (a set a ISAMAR angela fen; ox i KOE done) is a pain reliever. It is used to treat mild to moderate pain. How should I use this medicine? Take this medicine by mouth with a full glass of water. Follow the directions on the prescription label. Take your medicine at regular intervals. Do not take your medicine more often than directed. Talk to your salvage supervisor regarding the use of this medicine in children. Special care may be needed. Patients over 65 years old may have a stronger reaction and need a smaller dose. What side effects may I notice from receiving this medicine? Side effects that you should report to your doctor or health dog daycare provider as soon as possible: allergic reactions like skin rash, itching or hives, swelling of the face, lips, or tongue breathing difficulties, wheezing confusion light headedness or fainting spells severe stomach pain yellowing of the skin or the whites of the eyes Side effects that usually do not require medical attention (report to your doctor or health dog daycare provider if they continue or are bothersome): dizziness drowsiness nausea vomiting What may interact with this medicine? alcohol antihistamines barbiturates like amobarbital, butalbital, butabarbital, methohexital, pentobarbital, phenobarbital, thiopental, and secobarbital benztropine drugs for bladder problems like solifenacin, trospium, oxybutynin, tolterodine, hyoscyamine, and methscopolamine drugs for breathing problems like ipratropium and tiotropium drugs for certain stomach or intestine problems like propantheline, homatropine methylbromide, glycopyrrolate, atropine, belladonna, and dicyclomine general anesthetics like etomidate, ketamine, nitrous oxide, propofol, desflurane, enflurane, halothane, isoflurane, and sevoflurane medicines for depression, anxiety, or psychotic disturbances medicines for sleep muscle relaxants naltrexone narcotic medicines (opiates) for pain phenothiazines like perphenazine, thioridazine, chlorpromazine, mesoridazine, fluphenazine, prochlorperazine, promazine, and trifluoperazine scopolamine tramadol trihexyphenidyl What if I miss a dose? If you miss a dose, take it as soon as you can. If it is almost time for your next dose, take only that dose. Do not take double or extra doses. Where should I keep my medicine? Keep out of the reach of children. This medicine can be abused. Keep your medicine in a safe place to protect it from theft. Do not share this medicine with anyone. Selling or giving away this medicine is dangerous and against the law. Store at room temperature between 20 and 25 degrees C (68 and 77 degrees F). Keep container tightly closed. Protect from light. This medicine may cause accidental overdose and if it is taken by other adults, children, or pets. Flush any unused medicine down the toilet to reduce the chance of harm. Do not use the medicine after the expiration date. What should I tell my health care provider before I take this medicine? They need to know if you have any of these conditions: brain tumor Crohn's disease, inflammatory bowel disease, or ulcerative colitis drink more than 3 alcohol containing drinks per day drug abuse or addiction head injury heart or circulation problems kidney disease or problems going to the bathroom liver disease lung disease, asthma, or breathing problems an unusual or allergic reaction to acetaminophen, oxycodone, other opioid analgesics, other medicines, foods, dyes, or preservatives or trying to get breast-feeding What should I watch for while using this medicine? Tell your doctor or health dog daycare provider if your pain does not go away, if it gets worse, or if you have new or a different type of pain. You may develop tolerance to the medicine. Tolerance means that you will need a higher dose of the medication for pain relief. Tolerance is normal and is expected if you take this medicine for a long time. Do not suddenly stop taking your medicine because you may develop a severe reaction. Your body becomes used to the medicine. This does NOT mean you are addicted. Addiction is a behavior related to getting and using a drug for a non-medical reason. If you have pain, you have a medical reason to take pain medicine. Your doctor will tell you how much medicine to take. If your doctor wants you to stop the medicine, the dose will be slowly lowered over time to avoid any side effects. You may get drowsy or dizzy. Do not drive, use machinery, or do anything that needs mental alertness until you know how this medicine affects you. Do not stand or sit up quickly, especially if you are an older patient. This reduces the risk of dizzy or fainting spells. Alcohol may interfere with the effect of this medicine. Avoid alcoholic drinks. There are different types of narcotic medicines (opiates) for pain. If you take more than one type at the same time, you may have more side effects. Give your health care provider a list of all medicines you use. Your doctor will tell you how much medicine to take. Do not take more medicine than directed. Call emergency for help if you have problems breathing. The medicine will cause constipation. Try to have a bowel movement at least every 2 to 3 days. If you do not have a bowel movement for 3 days, call your doctor or health dog daycare provider. Do not take Tylenol (acetaminophen) or medicines that have acetaminophen with this medicine. Too much acetaminophen can be very dangerous. Many nonprescription medicines contain acetaminophen. Always read the labels carefully to avoid taking more acetaminophen. You have been given the following additional information: Pelvic Pain, Unknown Cause Possible Miscarriage (Threatened ) Oxycodone Hydrochloride, Acetaminophen Oral tablet Do not work for two days. (Electronically signed by Nolberto Butler Dr. 08/16/2016 18:09)
--- NOTE | 2016-08-16 18:10 | ED MED RECONCILIATION SUMMARY ---
Patient: NATTY LARSON Medication Reconciliation Report [facility] VisitID: [id number] [place] [address] 31y, F Registration Date/Time: 08/13/2016 Weight: 65.7 kg Height/Length: 65 in. BMI: 24.1 ALLERGIES: No Known Drug Allergy The patient's Home Medications are listed below: CONTINUE TAKING THE FOLLOWING MEDICATIONS: Adderall Oral Flovent HFA Inhalation Misoprostol Oral ProAir HFA Inhalation Singulair Oral The source(s) of the original Home Medication information: patient The following Medications were given to the patient in the Emergency Department: IV NS IV Fluids bolus 1000 mL wide open, administered: 08/13/2016 2:55:00 AM Fentanyl [IVP] IVP 50 mcg, administered: 08/13/2016 2:55:00 AM Fentanyl [IVP] IVP 50 mcg, administered: 08/13/2016 3:25:00 AM IV NS IV Fluids bolus 0, then 999 mL/hr, administered: 08/13/2016 3:33:00 AM Dilaudid [IVP] IVP 1 mg, administered: 08/13/2016 3:58:00 AM IV NS IV Fluids bolus 0, then 999 mL/hr, administered: 08/13/2016 5:00:00 AM Dilaudid [IVP] IVP 0.5 mg, administered: 08/13/2016 6:59:00 AM The following Medications were prescribed to the patient: Percocet 5 mg/325 mg: take 1-2 tablets orally every 6 hours as needed for pain. Dispense twenty (20). No refill. Substitution is permissible. -- Nolberto Butler Dr.
--- NOTE | 2016-08-16 18:10 | ED MED RECONCILIATION SUMMARY ---
Patient: NATTY LARSON Medication Reconciliation Report [facility] VisitID: [id number] [place] [address] 31y, F Registration Date/Time: 08/13/2016 Weight: 65.7 kg Height/Length: 65 in. BMI: 24.1 ALLERGIES: No Known Drug Allergy The patient's Home Medications are listed below: CONTINUE TAKING THE FOLLOWING MEDICATIONS: Adderall Oral Flovent HFA Inhalation Misoprostol Oral ProAir HFA Inhalation Singulair Oral The source(s) of the original Home Medication information: patient The following Medications were given to the patient in the Emergency Department: IV NS IV Fluids bolus 1000 mL wide open, administered: 08/13/2016 2:55:00 AM Fentanyl [IVP] IVP 50 mcg, administered: 08/13/2016 2:55:00 AM Fentanyl [IVP] IVP 50 mcg, administered: 08/13/2016 3:25:00 AM IV NS IV Fluids bolus 0, then 999 mL/hr, administered: 08/13/2016 3:33:00 AM Dilaudid [IVP] IVP 1 mg, administered: 08/13/2016 3:58:00 AM IV NS IV Fluids bolus 0, then 999 mL/hr, administered: 08/13/2016 5:00:00 AM Dilaudid [IVP] IVP 0.5 mg, administered: 08/13/2016 6:59:00 AM The following Medications were prescribed to the patient: Percocet 5 mg/325 mg: take 1-2 tablets orally every 6 hours as needed for pain. Dispense twenty (20). No refill. Substitution is permissible. -- Nolberto Butler Dr.
== END 2016-08-13 07:21 | disposition home or self-care (01) ==
LOC: ED SRH 02:32
DX: O20.0 Threatened abortion (principal); O26.51 Maternal hypotension syndrome, first trimester; Z3A.09 9 weeks gestation of pregnancy
CPT/HCPCS: 90001; 90004; 90100; 90155; 90197; 91004; 94001; 94060; 95059